=== PATIENT | female | born 1955 | race Caucasian/White ===

== ENCOUNTER 2019-04-22 08:55 | Day surgery (SDC) | payer OTHER ==
[~2019-04-22 08:55] MED LIST: ACCURETIC PO; ACYCLOVIR400 MG PO; ATROVENT H17 MCG/ACT IN; CELEXA20 MG PO; FLEXERIL PO; HYDROXYCHLOR200 MG PO; LAMICTAL25 M2 PO; MOTRIN400 MG/TAB PO; NAPROSYN500 MG PO; POTASSIUM99 MG PO; SINGULAIR10 MG PO; SYMBICORT1 AE1 IN
[2019-04-22 10:50] VITALS: BP 138/87
== END 2019-04-22 11:15 | disposition home or self-care (01) ==
LOC: ENDO 08:55
PROVIDERS: ATTEND Surgery
DX: Z12.11 Encounter for screening for malignant neoplasm of colon (principal); J44.9 Chronic obstructive pulmonary disease, unspecified; I10 Essential (primary) hypertension

== ENCOUNTER 2019-09-12 15:46 | Inpatient (IN) | payer OTHER ==
[~2019-09-12] VITALS: Ht 157.5 cm; Wt 90.8 kg
[2019-09-12 18:21] LABS: HEMOGLOBIN 13.9 g/dl (12.0-16.0); IMMATURE GRANULOCYTES 0.5 % (0.0-5.0); MEAN CELL VOLUME 90.7 fL CALC (80.0-100.0); MEAN CORPUSCULAR HGB 29.3 pG CALC (26.0-32.0); MEAN CORPUSCULAR HGB CONC 32.3 g/L CALC (32.0-36.0); NEUT# 4.75 thou/uL (2.00-7.15); RED BLOOD COUNT 4.74 mill/uL (4.20-5.60); RED CELL DISTRI WIDTH 13.1 % (11.5-15.5)
[2019-09-12 18:42] LABS: ALBUMIN 4.4 g/dL (3.2-5.0); ALKALINE PHOSPHATASE 70 u/l (38-126); ANION GAP 18 (6-22 (CALC)); BILIRUBIN, TOTAL 0.7 mg/dL (0.0-1.4); BUN 14 mg/dL (8-23); BUN/CREATININE RATIO 24 (12-20 (CALC)); CARBON DIOXIDE 22 mmol/l (22-30); CHLORIDE 99 mmol/l (95-108); CREATININE 0.6 mg/dL (0.5-1.0); GFR > 60 ML/MIN (>=60 (CALC)); GFR FOR AFR.AMER. > 60 ML/MIN (>=60 (CALC)); POTASSIUM 3.7 mmol/l (3.5-5.1); SGOT/AST 45 u/l (9-36); SODIUM 135 mmol/l (137-146); TOTAL PROTEIN 8.1 g/dL (6.3-8.2)
[2019-09-12 19:29] LABS: MYOGLOBIN 105 ng/mL (0 - 62)
[2019-09-12 23:13] VITALS: BP 133/83
[2019-09-13 03:40] VITALS: BP 115/55
[2019-09-13 08:15] VITALS: BP 120/60
[2019-09-13 10:58] VITALS: BP 113/64
[2019-09-13 15:10] VITALS: BP 116/70
[2019-09-13 18:42] VITALS: BP 130/76
[2019-09-13 23:35] VITALS: BP 117/68
[2019-09-14 03:38] VITALS: BP 146/73
[2019-09-14 05:24] LABS: HEMATOCRIT 38.5 % (37.0-47.0); HEMOGLOBIN 12.3 g/dl (12.0-16.0); IMMATURE GRANULOCYTES 0.6 % (0.0-5.0); MEAN CELL VOLUME 92.1 fL CALC (80.0-100.0); MEAN CORPUSCULAR HGB 29.4 pG CALC (26.0-32.0); MEAN CORPUSCULAR HGB CONC 31.9 g/L CALC (32.0-36.0); NEUT# 2.56 thou/uL (2.00-7.15); RED BLOOD COUNT 4.18 mill/uL (4.20-5.60); RED CELL DISTRI WIDTH 13.1 % (11.5-15.5)
[2019-09-14 05:31] LABS: ANION GAP 9 (6-22 (CALC)); BUN 12 mg/dL (8-23); BUN/CREATININE RATIO 25 (12-20 (CALC)); CARBON DIOXIDE 26 mmol/l (22-30); CHLORIDE 107 mmol/l (95-108); CREATININE 0.5 mg/dL (0.5-1.0); GFR > 60 ML/MIN (>=60 (CALC)); GFR FOR AFR.AMER. > 60 ML/MIN (>=60 (CALC)); MAGNESIUM 1.7 mg/dL (1.6-2.3); POTASSIUM 3.7 mmol/l (3.5-5.1); SODIUM 138 mmol/l (137-146)
[2019-09-14 08:15] VITALS: BP 159/71
[2019-09-14 11:43] VITALS: BP 126/79
[2019-09-14 15:43] VITALS: BP 133/74
[2019-09-14 19:36] VITALS: BP 138/71
[2019-09-15 00:23] VITALS: BP 132/68
[2019-09-15 05:29] LABS: HEMATOCRIT 37.6 % (37.0-47.0); HEMOGLOBIN 12.1 g/dl (12.0-16.0); IMMATURE GRANULOCYTES 0.4 % (0.0-5.0); MEAN CELL VOLUME 92.2 fL CALC (80.0-100.0); MEAN CORPUSCULAR HGB 29.7 pG CALC (26.0-32.0); MEAN CORPUSCULAR HGB CONC 32.2 g/L CALC (32.0-36.0); NEUT# 1.84 thou/uL (2.00-7.15); RED BLOOD COUNT 4.08 mill/uL (4.20-5.60); RED CELL DISTRI WIDTH 12.8 % (11.5-15.5)
[2019-09-15 05:44] LABS: ANION GAP 11 (6-22 (CALC)); BUN 13 mg/dL (8-23); BUN/CREATININE RATIO 27 (12-20 (CALC)); CARBON DIOXIDE 26 mmol/l (22-30); CHLORIDE 104 mmol/l (95-108); CREATININE 0.5 mg/dL (0.5-1.0); GFR > 60 ML/MIN (>=60 (CALC)); GFR FOR AFR.AMER. > 60 ML/MIN (>=60 (CALC)); MAGNESIUM 1.8 mg/dL (1.6-2.3); POTASSIUM 3.9 mmol/l (3.5-5.1); SODIUM 137 mmol/l (137-146)
[2019-09-15 05:45] VITALS: BP 134/86
[2019-09-15 06:06] LABS: URINE BILIRUBIN - DIPSTICK NEGATIVE (NEGATIVE); URINE BLOOD DIPSTICK NEGATIVE (NEGATIVE); URINE COLOR YELLOW; URINE GLUCOSE - DIPSTICK NEGATIVE (NEGATIVE); URINE KETONE NEGATIVE (NEGATIVE); URINE LEUK ESTERASE NEGATIVE (NEGATIVE); URINE NITRITE - DIPSTICK NEGATIVE (Negative); URINE PH 6.5 (4.5-8.0); URINE PROTEIN - DIPSTICK NEGATIVE (NEG-TRACE); URINE SPECIFIC GRAVITY <=1.005; URINE UROBILINOGEN - DIPSTICK 0.2 E.U./dL (0.2)
[2019-09-15 08:45] VITALS: BP 127/82
[2019-09-15 10:58] VITALS: BP 122/72
[2019-09-15 15:14] VITALS: BP 146/76
[2019-09-15 19:46] VITALS: BP 130/83
[2019-09-16 04:10] VITALS: BP 152/74
[2019-09-16 05:49] LABS: HEMATOCRIT 37.4 % (37.0-47.0); HEMOGLOBIN 12.1 g/dl (12.0-16.0); IMMATURE GRANULOCYTES 0.9 % (0.0-5.0); MEAN CELL VOLUME 92.1 fL CALC (80.0-100.0); MEAN CORPUSCULAR HGB 29.8 pG CALC (26.0-32.0); MEAN CORPUSCULAR HGB CONC 32.4 g/L CALC (32.0-36.0); NEUT# 3.86 thou/uL (2.00-7.15); RED BLOOD COUNT 4.06 mill/uL (4.20-5.60); RED CELL DISTRI WIDTH 12.8 % (11.5-15.5)
[2019-09-16 06:24] LABS: ANION GAP 10 (6-22 (CALC)); BUN 13 mg/dL (8-23); BUN/CREATININE RATIO 27 (12-20 (CALC)); CARBON DIOXIDE 30 mmol/l (22-30); CHLORIDE 103 mmol/l (95-108); CREATININE 0.5 mg/dL (0.5-1.0); GFR > 60 ML/MIN (>=60 (CALC)); GFR FOR AFR.AMER. > 60 ML/MIN (>=60 (CALC)); POTASSIUM 3.8 mmol/l (3.5-5.1); SODIUM 139 mmol/l (137-146)
[2019-09-16 08:20] VITALS: BP 128/82
[2019-09-16 10:59] VITALS: BP 124/78
[2019-09-16] MEDS ORDERED: PREDNISONE10 MG PO (18:35)
[2019-09-16] MEDS ORDERED: LEVAQUIN750 MG PO (18:35)
== END 2019-09-16 19:00 | disposition home or self-care (01) | DRG 193 ==
LOC: ED 15:46 → ED-I 20:00 → ED 21:10 → MS2 21:11
PROVIDERS: Emergency Medicine; Nurse Practitioner Family; ADMIT Internal Medicine; ATTEND Internal Medicine
DX: J18.9 Pneumonia, unspecified organism (principal); J96.01 Acute respiratory failure with hypoxia; J44.1 Chronic obstructive pulmonary disease with (acute) exacerbation; J45.901 Unspecified asthma with (acute) exacerbation; J44.0 Chronic obstructive pulmonary disease with (acute) lower respiratory infection; I10 Essential (primary) hypertension; F32.9 Major depressive disorder, single episode, unspecified; M06.9 Rheumatoid arthritis, unspecified
CPT/HCPCS: J1650

== ENCOUNTER 2022-01-09 16:37 | Emergency (ER) | payer OTHER ==
[2022-01-09] VITALS (8 sets, daily range): BP systolic 136–162; BP diastolic 69–98
[~2022-01-09] VITALS: Ht 157.5 cm; Wt 89.0 kg
[~2022-01-09 16:37] MED LIST changes: +LEVAQUIN750 MG PO; +PREDNISONE10 MG PO
[2022-01-09] MEDS ORDERED: VITAMIN B-12500 MCG PO (17:29)
[2022-01-09] MEDS ORDERED: ALBUTEROL SUL0.083 % IN (17:29)
[2022-01-09] MEDS ORDERED: [UNRECOGNIZED DRUG - REMARK] (17:30)
[2022-01-09] MEDS ORDERED: VITAMIN B-625 MG PO (17:30)
[2022-01-09] MEDS ORDERED: VITAMIN D325 MCG (17:30)
[2022-01-09 18:06] LABS: HEMATOCRIT 35.4 % (37.0-47.0); HEMOGLOBIN 11.1 g/dl (12.0-16.0); IMMATURE GRANULOCYTES 0.2 % (0.0-5.0); MEAN CELL VOLUME 96.2 fL CALC (80.0-100.0); MEAN CORPUSCULAR HGB 30.2 pG CALC (26.0-32.0); MEAN CORPUSCULAR HGB CONC 31.4 g/dL CAL (32.0-36.0); NEUT# 3.23 thou/uL (2.00-7.15); RED BLOOD COUNT 3.68 mill/uL (4.20-5.60); RED CELL DISTRI WIDTH 13.2 % (11.5-15.5)
[2022-01-09 18:17] LABS: ALBUMIN 3.6 g/dL (3.2-5.0); ALKALINE PHOSPHATASE 64 u/l (38-126); ANION GAP 7 (6-22 (CALC)); BUN 19 mg/dL (8-23); BUN/CREATININE RATIO 28 (12-20 (CALC)); CARBON DIOXIDE 31 mmol/l (22-30); CHLORIDE 105 mmol/l (95-108); CREATININE 0.7 mg/dL (0.5-1.0); GFR > 60 ML/MIN (>=60 (CALC)); GFR FOR AFR.AMER. > 60 ML/MIN (>=60 (CALC)); POTASSIUM 3.8 mmol/l (3.5-5.1); SGOT/AST 20 u/l (9-36); SODIUM 139 mmol/l (137-146)
[2022-01-09 18:18] LABS: BILIRUBIN, TOTAL 0.4 mg/dL (0.0-1.4); TOTAL PROTEIN 6.2 g/dL (6.3-8.2)
[2022-01-09] MEDS ORDERED: DOXYCYCLINE100 MG PO (19:37)
[2022-01-09] MEDS ORDERED: TRAMADOL HCL50 MG PO (19:37)
== END 2022-01-09 19:55 | disposition home or self-care (01) ==
LOC: ED 16:37
PROVIDERS: Nurse Practitioner
DX: L03.116 Cellulitis of left lower limb (principal); I10 Essential (primary) hypertension; J44.9 Chronic obstructive pulmonary disease, unspecified; F32.A Depression, unspecified

== ENCOUNTER 2022-04-10 13:04 | Emergency (ER) | payer OTHER ==
[2022-04-10] VITALS (10 sets, daily range): BP systolic 126–158; BP diastolic 67–127
[~2022-04-10] VITALS: Ht 157.5 cm; Wt 70.0 kg
[~2022-04-10 13:04] MED LIST changes: +ALBUTEROL SUL0.083 % IN; +DOXYCYCLINE100 MG PO; +TRAMADOL HCL50 MG PO; +VITAMIN B-12500 MCG PO; +VITAMIN B-625 MG PO; +VITAMIN D325 MCG; +[UNRECOGNIZED DRUG - REMARK]
[2022-04-10 13:44] LABS: HEMATOCRIT 40.9 % (37.0-47.0); IMMATURE GRANULOCYTES 1.8 % (0.0-5.0); MEAN CELL VOLUME 91.1 fL CALC (80.0-100.0); MEAN CORPUSCULAR HGB 29.6 pG CALC (26.0-32.0); MEAN CORPUSCULAR HGB CONC 32.5 g/dL CAL (32.0-36.0); NEUT# 8.24 thou/uL (2.00-7.15); RED BLOOD COUNT 4.49 mill/uL (4.20-5.60); RED CELL DISTRI WIDTH 12.5 % (11.5-15.5)
[2022-04-10 13:49] LABS: HEMOGLOBIN 13.3 g/dl (12.0-16.0)
[2022-04-10 14:04] LABS: PROTHROMBIN TIME 10.4 SECONDS (9.0-12.5)
[2022-04-10 14:10] LABS: ALBUMIN 3.6 g/dL (3.2-5.0); ALKALINE PHOSPHATASE 90 u/l (38-126); BUN 14 mg/dL (8-23); BUN/CREATININE RATIO 19 (12-20 (CALC)); CARBON DIOXIDE 27 mmol/l (22-30); CHLORIDE 99 mmol/l (95-108); CREATININE 0.7 mg/dL (0.5-1.0); GFR FOR AFR.AMER. > 60 ML/MIN (>=60 (CALC)); GFR OTHER RACES > 60 ML/MIN (>=60 (CALC)); SGOT/AST 23 u/l (9-36); SODIUM 134 mmol/l (137-146); TOTAL PROTEIN 6.7 g/dL (6.3-8.2)
[2022-04-10 14:14] LABS: ANION GAP 11 (6-22 (CALC)); BILIRUBIN, TOTAL 0.8 mg/dL (0.0-1.4); POTASSIUM 2.9 mmol/l (3.5-5.1)
[2022-04-10 14:58] LABS: URINE BILIRUBIN - DIPSTICK NEGATIVE (NEGATIVE); URINE BLOOD DIPSTICK TRACE-LYSED (NEGATIVE); URINE COLOR YELLOW; URINE GLUCOSE - DIPSTICK NEGATIVE (NEGATIVE); URINE KETONE TRACE mg/dL (NEGATIVE); URINE LEUK ESTERASE TRACE (NEGATIVE); URINE PROTEIN - DIPSTICK NEGATIVE (NEG-TRACE); URINE UROBILINOGEN - DIPSTICK 0.2 E.U./dL (0.2)
[2022-04-10 15:00] LABS: URINE NITRITE - DIPSTICK NEGATIVE (Negative)
[2022-04-10] MEDS ORDERED: ZPAK PO (16:07)
[2022-04-10] MEDS ORDERED: PREDNISONE50 MG PO (16:07)
== END 2022-04-10 16:25 | disposition home or self-care (01) ==
LOC: ED 13:04 → ED-I 13:38 → ED 13:38 → ED-I 16:00 → ED 16:25
PROVIDERS: Family Medicine
DX: U07.1 COVID-19 (principal); R05.9 Cough, unspecified; R06.02 Shortness of breath; R06.2 Wheezing; R19.5 Other fecal abnormalities; I10 Essential (primary) hypertension; J44.9 Chronic obstructive pulmonary disease, unspecified; F32.A Depression, unspecified

== ENCOUNTER 2022-05-30 16:47 | Emergency (ER) | payer OTHER ==
[~2022-05-30] VITALS: Ht 157.5 cm; Wt 113.6 kg
[~2022-05-30 16:47] MED LIST changes: +PREDNISONE50 MG PO; +ZPAK PO
[2022-05-30 17:03] VITALS: BP 177/96
[2022-05-30] MEDS ORDERED: CEPHALEXIN500 M1 PO (17:03)
== END 2022-05-30 19:00 | disposition home or self-care (01) ==
LOC: ED 16:47
DX: S81.812A Laceration without foreign body, left lower leg, initial encounter (principal); I10 Essential (primary) hypertension; J44.9 Chronic obstructive pulmonary disease, unspecified; F32.A Depression, unspecified; W26.8XXA Contact with other sharp object(s), not elsewhere classified, initial encounter; Y93.89 Activity, other specified

== ENCOUNTER 2024-10-22 16:52 | Observation (INO) | payer MEDICARE, MEDICAID ==
[2024-10-22] VITALS (17 sets, daily range): BP systolic 148–189; BP diastolic 78–122
[~2024-10-22] VITALS: Ht 152.4 cm; Wt 83.4 kg
[~2024-10-22 16:52] MED LIST changes: +BACTRIM DS1 TAB PO; +CEPHALEXIN500 M1 PO; +DEXAMETHASON6 MG PO; +SPIRIVA HANDIH18 MCG
[2024-10-22] MEDS ORDERED: methylPREDNISolone SODIUM SUCC 125 MG/2 ML SDV IV ONE (17:00)
[2024-10-22] MEDS ORDERED: IPRATROPIUM-Albuterol 0.5MG-2.5MG/3 ML NEB ONE ×3 (17:00)
[2024-10-22 17:30] LABS: BASO% 0.7 % (0-3); EOS% 0.9 % (0-8); HEMATOCRIT 38.7 % (37.0-47.0); HEMOGLOBIN 11.8 g/dl (12.0-16.0); IMMATURE GRANULOCYTES 0.5 % (0.0-5.0); LYMPH% 24.7 % (15-41); MEAN CELL VOLUME 98.7 fL CALC (80.0-100.0); MEAN CORPUSCULAR HGB 30.1 pG CALC (26.0-32.0); MEAN CORPUSCULAR HGB CONC 30.5 g/dL CAL (32.0-36.0); NEUT# 2.84 thou/uL (2.00-7.15); NEUT% 66.2 % (42-76); RED BLOOD COUNT 3.92 mill/uL (4.20-5.60); RED CELL DISTRI WIDTH 12.7 % (11.5-15.5)
[2024-10-22 17:44] LABS: ALKALINE PHOSPHATASE 70 u/l (38-126); ANION GAP 6 (6-22 (CALC)); BUN 25 mg/dL (8-23); BUN/CREATININE RATIO 46 (12-20 (CALC)); CARBON DIOXIDE 35 mmol/l (22-30); CHLORIDE 104 mmol/l (95-108); CREATININE 0.5 mg/dL (0.5-1.0); ESTIMATED GFR 103 ML/MIN (>=90 (CALC)); POTASSIUM 4.2 mmol/l (3.5-5.1); SGOT/AST 21 u/l (9-36); SODIUM 141 mmol/l (137-146); TOTAL PROTEIN 6.9 g/dL (6.3-8.2)
[2024-10-22 17:47] LABS: ALBUMIN 4.1 g/dL (3.2-5.0); BILIRUBIN, TOTAL 0.6 mg/dL (0.02-1.3)
[2024-10-22 17:56] LABS: PROTHROMBIN TIME 10.5 SECONDS (9.0-12.5)
[2024-10-22] MEDS ORDERED: Zaleplon 5 MG/CAP PO PRN (20:10)
[2024-10-22] MEDS ORDERED: ACETAMINOPHEN 325 MG/TAB PO PRN (20:10)
[2024-10-22] MEDS ORDERED: MAGNESIUM HYDROXIDE 30 ML UDC PO PRN (20:10)
[2024-10-22] MEDS ORDERED: AZITHROMYCIN 500 MG/VIAL SDV IV SCH (20:10)
[2024-10-22] MEDS ORDERED: ENOXAPARIN SODIUM 40 MG/0.4 ML SYR SC SCH (21:00)
[2024-10-22] MEDS ORDERED: SODIUM CHLORIDE 0.9% 500 ML IV ONE (22:57)
[2024-10-22] MEDS ORDERED: ALBUTEROL SULFATE 2.5 MG VIAL IN SCH (23:00)
[2024-10-23] MEDS ORDERED: LOSARTAN POTASS25 MG PO (03:42)
[2024-10-23] MEDS ORDERED: BREZTRI AEROSPH1 AER (03:47)
[2024-10-23 04:21] VITALS: BP 157/94
[2024-10-23 06:11] LABS: BASO% 0.3 % (0-3); HEMOGLOBIN 11.8 g/dl (12.0-16.0); IMMATURE GRANULOCYTES 0.6 % (0.0-5.0); LYMPH% 10.1 % (15-41); MEAN CELL VOLUME 97.9 fL CALC (80.0-100.0); MEAN CORPUSCULAR HGB 31.2 pG CALC (26.0-32.0); MEAN CORPUSCULAR HGB CONC 31.9 g/dL CAL (32.0-36.0); MONO% 4.1 % (2-13); NEUT# 5.82 thou/uL (2.00-7.15); NEUT% 84.9 % (42-76); RED BLOOD COUNT 3.78 mill/uL (4.20-5.60); RED CELL DISTRI WIDTH 12.8 % (11.5-15.5)
[2024-10-23 06:36] VITALS: BP 172/86
[2024-10-23 06:46] LABS: ALBUMIN 3.8 g/dL (3.2-5.0); BILIRUBIN, TOTAL 0.4 mg/dL (0.02-1.3); CREATININE 0.5 mg/dL (0.5-1.0); TOTAL PROTEIN 6.1 g/dL (6.3-8.2)
[2024-10-23] MEDS ORDERED: methylPREDNISolone Sod Succ 40 MG/ML SDV IV SCH (09:00)
[2024-10-23] MEDS ORDERED: PROTONIX40 M2 PO (11:54)
[2024-10-23] MEDS ORDERED: [UNRECOGNIZED DRUG - OTHER] PO (11:54)
[2024-10-23] MEDS ORDERED: VITAMIN B6100 MG PO (11:55)
[2024-10-23] MEDS ORDERED: MAGNESIUM 250 M1 TAB PO (11:55)
[2024-10-23] MEDS ORDERED: MICRO-K8 MEQ PO (11:56)
[2024-10-23] MEDS ORDERED: PANTOPRAZOLE SODIUM Sesquihydr 40 MG/TAB PO SCH (13:00)
[2024-10-23] MEDS ORDERED: LOSARTAN Potassium 25 MG/TAB PO SCH ×2 (13:00→16:30)
[2024-10-23] MEDS ORDERED: ALBUTEROL SULFATE IN PRN (15:00)
[2024-10-23] MEDS ORDERED: IPRATROPIUM-Albuterol 0.5MG-2.5MG/3 ML NEB SCH (15:00)
[2024-10-23 15:32] VITALS: BP 190/96
[2024-10-23] MEDS ORDERED: hydrALAZINE HCL 20 MG/ML VIAL(1 ML) IV PRN (15:50)
[2024-10-23 19:38] VITALS: BP 167/100
[2024-10-23 20:29] VITALS: BP 182/84
[2024-10-23] MEDS ORDERED: AZITHROMYCIN 500 MG in SODIUM CHLORIDE 0.9% 250 ML IV SCH (21:00)
[2024-10-23] MEDS ORDERED: MONTELUKAST SODIUM 10 MG/TAB PO SCH (21:00)
[2024-10-24] VITALS (7 sets, daily range): BP systolic 136–188; BP diastolic 72–104
[2024-10-24 05:27] LABS: BASO% 0.3 % (0-3); HEMATOCRIT 39.6 % (37.0-47.0); HEMOGLOBIN 12.3 g/dl (12.0-16.0); IMMATURE GRANULOCYTES 1.6 % (0.0-5.0); LYMPH% 12.1 % (15-41); MEAN CORPUSCULAR HGB 30.8 pG CALC (26.0-32.0); MEAN CORPUSCULAR HGB CONC 31.1 g/dL CAL (32.0-36.0); NEUT# 6.14 thou/uL (2.00-7.15)
[2024-10-24 05:43] LABS: ALBUMIN 4.2 g/dL (3.2-5.0); BILIRUBIN, TOTAL 0.5 mg/dL (0.02-1.3); CREATININE 0.4 mg/dL (0.5-1.0); TOTAL PROTEIN 6.7 g/dL (6.3-8.2)
[2024-10-24] MEDS ORDERED: LOSARTAN Potassium 50 MG/TAB PO SCH (09:00)
[2024-10-24] MEDS ORDERED: LOSARTAN POTASS50 MG PO (12:24)
[2024-10-24] MEDS ORDERED: DOXYCYCLINE100 MG PO (12:29)
[2024-10-24] MEDS ORDERED: VANTIN200 M1 PO (12:29)
[2024-10-24] MEDS ORDERED: PREDNISONE10 MG PO (12:30)
== END 2024-10-24 15:11 | disposition home or self-care (01) ==
LOC: ED 16:52 → ED-I 19:45 → ED 20:35 → MS2 20:36
PROVIDERS: Nurse Practitioner; Nurse Practitioner Family; ADMIT Internal Medicine; ATTEND Internal Medicine
DX: J44.1 Chronic obstructive pulmonary disease with (acute) exacerbation (principal); J96.11 Chronic respiratory failure with hypoxia; I10 Essential (primary) hypertension; K21.9 Gastro-esophageal reflux disease without esophagitis; F32.A Depression, unspecified; M06.9 Rheumatoid arthritis, unspecified; Z99.81 Dependence on supplemental oxygen; Z20.822 Contact with and (suspected) exposure to COVID-19
CPT/HCPCS: J0360; J0456; J0696; J1650